=== PATIENT | male | born 1960 | race Two or more races ===

== ENCOUNTER 2018-02-02 06:04 | Emergency (ER) | payer OTHER ==
[~2018-02-02] VITALS: Ht 165.1 cm; Wt 72.6 kg
[~2018-02-02 06:04] MED LIST: LISINOPRIL10 MG; PERCOCET 5/3251 TAB PO; PNEU16DI2; SYNTHROID150 MCG
[2018-02-02] MEDS ORDERED: TOPROL XL50 M1 (06:17)
== END 2018-02-02 13:02 | disposition home or self-care (01) ==
LOC: ER 06:04 → CPU-OBS 06:07 → ER 13:02
DX: R07.89 Other chest pain (principal); B20 Human immunodeficiency virus [HIV] disease; C73 Malignant neoplasm of thyroid gland; I25.10 Atherosclerotic heart disease of native coronary artery without angina pectoris
CPT/HCPCS: G0378; G0379; 93005

== ENCOUNTER 2018-04-21 07:22 | Outpatient (CLI) | payer OTHER ==
[~2018-04-21 07:22] MED LIST changes: +TOPROL XL50 M1
== END 2018-04-21 12:28 | disposition home or self-care (01) ==
LOC: NUCLEAR 07:22
DX: R94.31 Abnormal electrocardiogram [ECG] [EKG] (principal); R07.89 Other chest pain
CPT/HCPCS: 78452; A9500; 93017

== ENCOUNTER 2019-10-20 08:49 | Outpatient (CLI) | payer OTHER | END 2019-10-20 08:54 | disposition home or self-care (01) | LOC: NUCLEAR 08:49 | DX: I25.10 Atherosclerotic heart disease of native coronary artery without angina pectoris (principal) | CPT/HCPCS: 78472; 78496; A9560 ==

== ENCOUNTER 2019-10-29 09:44 | Outpatient (CLI) | payer OTHER | END 2019-10-29 09:58 | disposition home or self-care (01) | LOC: NUCLEAR 09:44 | DX: I50.9 Heart failure, unspecified (principal); I25.2 Old myocardial infarction ==

== ENCOUNTER 2020-01-14 08:43 | Emergency (ER) | payer OTHER ==
[~2020-01-14] VITALS: Ht 154.9 cm; Wt 73.0 kg
[2020-01-14] MEDS ORDERED: RAYATAZ (08:53)
[2020-01-14] MEDS ORDERED: [UNRECOGNIZED DRUG - OTHER] (08:54)
[2020-01-14] MEDS ORDERED: RESTORIL30 MG (08:54)
[2020-01-14] MEDS ORDERED: ULTRAM50 MG (08:55)
[2020-01-14] MEDS ORDERED: SYNTHROID88 MCG (08:56)
[2020-01-14] MEDS ORDERED: SYNTHROID100 MCG (08:57)
== END 2020-01-14 12:33 | disposition home or self-care (01) ==
LOC: ER 08:43
DX: R07.89 Other chest pain (principal); I25.10 Atherosclerotic heart disease of native coronary artery without angina pectoris; B20 Human immunodeficiency virus [HIV] disease

== ENCOUNTER 2020-06-19 07:55 | Emergency (ER) | payer OTHER ==
[~2020-06-19] VITALS: Ht 162.6 cm; Wt 73.9 kg
[~2020-06-19 07:55] MED LIST changes: +RAYATAZ; +RESTORIL30 MG; +SYNTHROID100 MCG; +SYNTHROID88 MCG; +ULTRAM50 MG; +[UNRECOGNIZED DRUG - OTHER]
[2020-06-19] MEDS ORDERED: ECOTRIN81 MG (08:10)
== END 2020-06-19 14:50 | disposition home or self-care (01) ==
LOC: CPU-OBS 07:55 → ER 07:55
DX: R07.89 Other chest pain (principal); Z20.828 Contact with and (suspected) exposure to other viral communicable diseases
CPT/HCPCS: G0378; G0379; 93005

== ENCOUNTER 2020-09-01 07:34 | Outpatient (CLI) | payer OTHER ==
[~2020-09-01 07:34] MED LIST changes: +ECOTRIN81 MG
== END 2020-09-01 09:51 | disposition home or self-care (01) ==
LOC: NUCLEAR 07:34
PROVIDERS: ATTEND Internal Medicine Cardiovascular Disease
DX: R07.89 Other chest pain (principal)
CPT/HCPCS: 78452; 93017; A9500

== ENCOUNTER 2021-11-12 11:32 | Emergency (ER) | payer OTHER ==
[~2021-11-12] VITALS: Ht 165.1 cm; Wt 78.9 kg
[~2021-11-12 11:32] MED LIST changes: +DOVATO 50-3001 EACH
[2021-11-12] MEDS ORDERED: LIPITOR20 MG (11:56)
[2021-11-12] MEDS ORDERED: DICLOFENAC SODI75 MG PO (16:43)
[2021-11-12] MEDS ORDERED: COLCHICINE0.6 MG PO (16:43)
== END 2021-11-12 16:50 | disposition home or self-care (01) ==
LOC: ER 11:32
DX: M25.561 Pain in right knee (principal); I10 Essential (primary) hypertension; E03.9 Hypothyroidism, unspecified

== ENCOUNTER → 2022-06-04 | Outpatient (CLI) | payer OTHER ==
[~2022-06-04] MED LIST changes: +COLCHICINE0.6 MG PO; +DICLOFENAC SODI75 MG PO; +LIPITOR20 MG
== END | disposition home or self-care (01) ==
LOC: NUCLEAR 08:00
PROVIDERS: ATTEND Internal Medicine
DX: I11.9 Hypertensive heart disease without heart failure (principal); I49.3 Ventricular premature depolarization

== ENCOUNTER 2022-06-25 07:07 | Outpatient (CLI) | payer OTHER | END 2022-06-25 07:10 | disposition home or self-care (01) | LOC: NUCLEAR 07:07 | PROVIDERS: ATTEND Internal Medicine Cardiovascular Disease | DX: I50.1 Left ventricular failure, unspecified (principal) | CPT/HCPCS: 78472; A9512 ==

== ENCOUNTER 2022-08-15 05:31 | Emergency (ER) | payer OTHER ==
[~2022-08-15] VITALS: Ht 162.6 cm; Wt 81.6 kg
== END 2022-08-15 20:07 | disposition home or self-care (01) ==
LOC: ER 05:31
DX: J06.9 Acute upper respiratory infection, unspecified (principal); I25.10 Atherosclerotic heart disease of native coronary artery without angina pectoris; B20 Human immunodeficiency virus [HIV] disease; F41.8 Other specified anxiety disorders; R42 Dizziness and giddiness; Z20.828 Contact with and (suspected) exposure to other viral communicable diseases

== ENCOUNTER 2022-09-02 12:06 | Emergency (ER) | payer OTHER ==
[~2022-09-02] VITALS: Ht 162.6 cm; Wt 79.4 kg
== END 2022-09-02 16:24 | disposition home or self-care (01) ==
LOC: ER 12:06
DX: R07.9 Chest pain, unspecified (principal); E03.9 Hypothyroidism, unspecified; I10 Essential (primary) hypertension; E78.00 Pure hypercholesterolemia, unspecified; Z20.822 Contact with and (suspected) exposure to COVID-19